=== PATIENT | female | born 1945 | race Caucasian/White ===

== ENCOUNTER 2021-10-09 15:10 | Inpatient (IN) ==
[2021-10-09] MEDS ORDERED: ONDANSETRON 4 MG/2 ML VIAL IV STA (16:44)
[2021-10-09] MEDS ORDERED: MORPHINE 2 MG/1 ML SYRINGE IV STA (16:44)
[2021-10-09] MEDS ORDERED: SODIUM CHLORIDE 0.9% 1,000 ML IV STA (16:44)
[2021-10-09 17:38] LABS: Basophils % 0.3 % (0.0-0.8); Eosinophils % 0.5 % (0.00-10.9); Hematocrit 39.5 VOL% (35.7-47.0); Hemoglobin 12.4 GM/DL (12.0-16.0); Immature Granulocytes % 0.5 %; Immature Granulocytes Absolute 0.03 #; Lymphocytes # 1.6 10*3/uL (1.4-4.0); Lymphocytes % 24.1 % (21.3-54.2); Mean Corpuscular HGB Conc 31.4 GM/DL (32-36); Mean Corpuscular Volume 90.8 FL (87-102); Mean Platelet Volume 9.7 FL (9.6-12.0); Monocytes # 0.3 10*3/uL (0.11-0.8); Monocytes % 4.5 % (1.7-12.7); Neutrophils % 70.1 % (38.7-73.9); Platelet Count 261 T/CUMM (130-400); Red Blood Count 4.35 MC/CUMM (3.8-5.5); Red Cell Distribution Width 13.9 % (9.3-17.3); White Blood Count 6.6 T/CUMM (4-12)
[2021-10-09 17:59] LABS: Alanine Aminotransferase 70 U/L (13-56); Albumin 3.4 G/DL (3.4-5.0); Alkaline Phosphatase 238 U/L (45-117); Aspartate Amino Transferase 100 U/L (0-37); Bilirubin,Total < 0.39 MG/DL (0.20-1.00); Blood Urea Nitrogen 6 MG/DL (7-18); Calcium 9.5 MG/DL (8.5-10.1); Carbon Dioxide 27 MMOL/L (21-32); Chloride 112 MMOL/L (98-107); Glucose 109 MG/DL (74-106); Osmolality,Calculated 286.7 MOS/KG (273-304); Potassium 4.1 MMOL/L (3.5-5.1); Sodium 145 MMOL/L (136-145); Total Protein 7.6 G/DL (6.4-8.2)
[2021-10-09] MEDS ORDERED: ACETAMINOPHEN 325 MG TABLET PO PRN (18:07)
[2021-10-09] MEDS ORDERED: SIMETHICONE CHEW 125 MG TABLET PO PRN (18:07)
[2021-10-09] MEDS ORDERED: CALCIUM CARBONATE CHEW 500 MG TABLET PO PRN (18:07)
[2021-10-09] MEDS ORDERED: GLUCAGON 1 MG VIAL IM PRN (18:07)
[2021-10-09] MEDS ORDERED: MORPHINE 2 MG/1 ML SYRINGE IV PRN (18:07)
[2021-10-09 18:11] LABS: PT Patient Result 10.8 SECS (10.1-12.1); Partial Thromboplastin Time 30.2 SECS (23.7-32.9)
[2021-10-09] MEDS ORDERED: DEXTROSE 10% 250 ML BAG IV PRN (18:17)
[2021-10-09] MEDS: SODIUM CHLORIDE 0.9% 1,000 ML IV SCH (19:06)
[2021-10-09] MEDS: cefTRIAXone 1,000 MG in SODIUM CHLORIDE 0.9% 100 ML IV SCH (19:07)
[2021-10-10] MEDS: SODIUM CHLORIDE 0.9% 1,000 ML IV SCH ×2 (03:06→09:44)
[2021-10-10 05:12] LABS: Basophils % 0.4 % (0.0-0.8); Eosinophils # 0.1 10*3/uL (0.0-0.87); Eosinophils % 2.2 % (0.00-10.9); Hematocrit 34.3 VOL% (35.7-47.0); Hemoglobin 10.6 GM/DL (12.0-16.0); Immature Granulocytes % 0.4 %; Immature Granulocytes Absolute 0.02 #; Lymphocytes # 1.3 10*3/uL (1.4-4.0); Lymphocytes % 24.6 % (21.3-54.2); Mean Corpuscular HGB Conc 30.9 GM/DL (32-36); Mean Corpuscular Volume 92.2 FL (87-102); Mean Platelet Volume 10.3 FL (9.6-12.0); Monocytes # 0.4 10*3/uL (0.11-0.8); Neutrophils % 65.4 % (38.7-73.9); Platelet Count 214 T/CUMM (130-400); Red Blood Count 3.72 MC/CUMM (3.8-5.5); White Blood Count 5.4 T/CUMM (4-12)
[2021-10-10 05:31] LABS: Alanine Aminotransferase 42 U/L (13-56); Albumin 2.9 G/DL (3.4-5.0); Alkaline Phosphatase 170 U/L (45-117); Aspartate Amino Transferase 42 U/L (0-37); Bilirubin,Total < 0.39 MG/DL (0.20-1.00); Blood Urea Nitrogen 5 MG/DL (7-18); Calcium 8.7 MG/DL (8.5-10.1); Carbon Dioxide 24 MMOL/L (21-32); Chloride 117 MMOL/L (98-107); Glucose 96 MG/DL (74-106); Osmolality,Calculated 290.3 MOS/KG (273-304); Potassium 3.2 MMOL/L (3.5-5.1); Sodium 148 MMOL/L (136-145); Total Protein 5.9 G/DL (6.4-8.2)
[2021-10-10 05:35] LABS: VLDL Cholesterol 22.2 MG/DL
[2021-10-10] MEDS: ONDANSETRON 4 MG/2 ML VIAL IV PRN (05:52)
[2021-10-10] MEDS: POTASSIUM CHLORIDE RIDER 10 MEQ/100 ML PREMIX IV PRN ×4 (06:23→12:37)
[2021-10-10] MEDS ORDERED: HYDROmorphone 1 MG/1 ML SYRINGE IV PRN ×2 (08:59)
[2021-10-10] MEDS: PANTOPRAZOLE 40 MG VIAL IV SCH (09:44)
[2021-10-10] MEDS: lisinopriL 10 MG TABLET PO SCH (09:44)
[2021-10-10] MEDS ORDERED: MORPHINE 2 MG/1 ML SYRINGE IV PRN (10:09)
[2021-10-10] MEDS: LACTATED RINGERS 1,000 ML IV SCH ×2 (14:51→19:37)
[2021-10-10] MEDS: hydrALAZINE 20 MG/1 ML VIAL IV PRN ×2 (14:52→20:15)
[2021-10-10] MEDS ORDERED: BUPIVACAINE MPF 0.25% 10 ML VIAL ONE (15:01)
[2021-10-10] MEDS ORDERED: LIDOCAINE 1%/EPI INJ 20 ML VIAL ONE (15:01)
[2021-10-10] MEDS ORDERED: TISSUE ADHESIVE 1 EACH APPLICATOR TOP ONE (15:01)
[2021-10-10] MEDS ORDERED: fentaNYL 100 MCG/2 ML VIAL ONE (16:41)
[2021-10-10] MEDS ORDERED: ETOMIDATE 40 MG/20 ML VIAL IV ONE (16:41)
[2021-10-10] MEDS ORDERED: ONDANSETRON 4 MG/2 ML VIAL ONE (16:49)
[2021-10-10] MEDS ORDERED: propofoL 200 MG/20 ML VIAL IV ONE (17:08)
[2021-10-10] MEDS ORDERED: LIDOCAINE 2% 5 ML VIAL ONE (17:08)
[2021-10-10] MEDS ORDERED: DESFLURANE 1 UNIT/15 MINUTE INH ONE (17:08)
[2021-10-10] MEDS ORDERED: ROCURONIUM 50 MG/5 ML VIAL IV ONE (17:08)
[2021-10-10] MEDS ORDERED: GLYCOPYRROLATE 0.4 MG/2 ML VIAL ONE (17:35)
[2021-10-10] MEDS ORDERED: NEOSTIGMINE 10 MG/10 ML VIAL ONE (17:35)
[2021-10-10] MEDS: HYDROmorphone 1 MG/1 ML SYRINGE IV PRN ×2 (18:05→18:10)
[2021-10-10] MEDS ORDERED: HYDROmorphone 1 MG/1 ML SYRINGE ONE ×2 (18:09→18:16)
[2021-10-10] MEDS ORDERED: PROMETHAZINE 25 MG/1 ML VIAL ONE (18:16)
[2021-10-10] MEDS ORDERED: MEPERIDINE 25 MG/1 ML VIAL IV PRN (18:35)
[2021-10-10] MEDS ORDERED: PROMETHAZINE INJ 25 MG in SODIUM CHLORIDE 0.9% 50 ML IV PRN (18:35)
[2021-10-10] MEDS ORDERED: ONDANSETRON 4 MG/2 ML VIAL IV PRN (18:35)
[2021-10-10] MEDS ORDERED: SODIUM CHLORIDE 0.9% 100 ML IV ONE (19:07)
[2021-10-10] MEDS: cefTRIAXone 1,000 MG in SODIUM CHLORIDE 0.9% 100 ML IV SCH (19:23)
[2021-10-10] MEDS: MORPHINE 2 MG/1 ML SYRINGE IV PRN (22:25)
[2021-10-11] MEDS: LACTATED RINGERS 1,000 ML IV SCH ×5 (04:34→22:02)
[2021-10-11 06:18] LABS: Basophils % 0.3 % (0.0-0.8); Eosinophils % 0.1 % (0.00-10.9); Hematocrit 36.6 VOL% (35.7-47.0); Hemoglobin 11.5 GM/DL (12.0-16.0); Immature Granulocytes % 0.4 %; Immature Granulocytes Absolute 0.03 #; Lymphocytes # 0.9 10*3/uL (1.4-4.0); Lymphocytes % 12.1 % (21.3-54.2); Mean Corpuscular HGB Conc 31.4 GM/DL (32-36); Mean Platelet Volume 10.4 FL (9.6-12.0); Monocytes # 0.5 10*3/uL (0.11-0.8); Monocytes % 7.4 % (1.7-12.7); Neutrophils % 79.7 % (38.7-73.9); Platelet Count 222 T/CUMM (130-400); Red Blood Count 4.02 MC/CUMM (3.8-5.5); Red Cell Distribution Width 13.9 % (9.3-17.3); White Blood Count 7.2 T/CUMM (4-12)
[2021-10-11 06:31] LABS: Albumin 2.9 G/DL (3.4-5.0); Bilirubin,Total 0.4 MG/DL (0.20-1.00); Osmolality,Calculated 280.1 MOS/KG (273-304); Potassium 3.4 MMOL/L (3.5-5.1)
[2021-10-11] MEDS: MORPHINE 2 MG/1 ML SYRINGE IV PRN ×2 (08:07→12:20)
[2021-10-11] MEDS ORDERED: INDOMETHACIN SUPP 50 MG SUPP RECTAL ONE (08:25)
[2021-10-11 09:38] LABS: PT Patient Result 11.4 SECS (10.1-12.1)
[2021-10-11] MEDS: PANTOPRAZOLE 40 MG VIAL IV SCH (09:57)
[2021-10-11] MEDS: lisinopriL 10 MG TABLET PO SCH (09:57)
[2021-10-11] MEDS ORDERED: fentaNYL 100 MCG/2 ML VIAL ONE (10:12)
[2021-10-11] MEDS ORDERED: ePHEDrine 50 MG/ML VIAL ONE (10:12)
[2021-10-11] MEDS ORDERED: propofoL 200 MG/20 ML VIAL IV ONE (10:59)
[2021-10-11] MEDS ORDERED: ROCURONIUM 50 MG/5 ML VIAL IV ONE (10:59)
[2021-10-11] MEDS ORDERED: LIDOCAINE 2% 5 ML VIAL ONE (10:59)
[2021-10-11] MEDS ORDERED: SUCCINYLCHOLINE 200 MG/10 ML VIAL ONE (10:59)
[2021-10-11] MEDS ORDERED: ONDANSETRON 4 MG/2 ML VIAL ONE (11:00)
[2021-10-11] MEDS ORDERED: SEVOFLURANE 1 UNIT/15 MINUTE INH ONE (11:00)
[2021-10-11] MEDS ORDERED: hydrALAZINE 20 MG/1 ML VIAL ONE (11:00)
[2021-10-11] MEDS ORDERED: DEXAMETHASONE 4 MG/1 ML VIAL ONE (11:00)
[2021-10-11] MEDS: ONDANSETRON 4 MG/2 ML VIAL IV PRN (12:20)
[2021-10-11] MEDS: cefTRIAXone 1,000 MG in SODIUM CHLORIDE 0.9% 100 ML IV SCH (18:25)
[2021-10-11] MEDS: traMADol 50 MG TABLET PO SCH (22:00)
[2021-10-12 07:57] VITALS: BP 159/58
[2021-10-12] MEDS: lisinopriL 10 MG TABLET PO SCH (10:42)
[2021-10-12] MEDS: LACTATED RINGERS 1,000 ML IV SCH ×2 (10:42)
[2021-10-12] MEDS: PANTOPRAZOLE 40 MG VIAL IV SCH (10:43)
[2021-10-12] MEDS: traMADol 50 MG TABLET PO SCH (11:10)
== END 2021-10-12 11:20 | disposition home or self-care (01) | DRG 418 ==
LOC: N.ED 15:10 → N.EDINP 18:07 → SUATTDRO 18:07 → N.3E 18:47
PROVIDERS: ADMIT Internal Medicine; ATTEND Internal Medicine
PROC: LAPCHOL (2021-10-10 16:45)
PROC: ERCPWSP (ICD-10-PCS; 2021-10-11 12:50)